=== PATIENT | male | born 1935 | race Caucasian/White ===

== ENCOUNTER 2020-07-10 13:55 | Emergency (ER) | payer MEDICARE, SELFPAY ==
[2020-07-10 14:01] VITALS: BP 164/90; PULSE 66; RESP 18; TEMP 36.8; O2SAT 96; BMI 26.2
--- NOTE | 2020-07-10 14:11 | DI.RAD.S_ITS ---
PROCEDURE: XR RIBS LT MIN 3V W CXR1V INDICATIONS: fall down stair,left rib pain TECHNIQUE: To views of the left ribs were acquired, along with a single view chest. COMPARISON: None. FINDINGS: Surgical changes and devices: None. Bones and chest wall: Bilateral shoulder arthroplasties. No fractures or dislocations. No suspicious bony lesions. Overlying soft tissues appear unremarkable. Lungs and pleura: No pleural effusions or pneumothorax. Lungs appear clear. Atelectasis versus parenchymal scarring noted in the left lung base. Mediastinum: Mediastinal contours appear normal. Heart size is normal. IMPRESSION: No displaced rib fracture. Dictated by: Albertina De Jesus MD, PhD on 07/10/2020 at 15:01 Approved by: Albertina De Jesus MD, PhD on 07/10/2020 at 15:03
--- NOTE | 2020-07-10 14:12 | DI.RAD.S_ITS ---
PROCEDURE: XR KNEE LT 3V INDICATIONS: Fall down stairs TECHNIQUE: 3 views of the knee were acquired. COMPARISON: None. FINDINGS: Bones: No fractures or dislocations. No suspicious bony lesions. Tricompartmental osteoarthritis. Soft tissues: No joint effusion. No suspicious soft tissue calcifications. IMPRESSION: No fracture. No acute osseous lesion. If symptoms and/or clinical suspicion for pathology persists, further assessment with repeat radiographs (7-10 days) or advanced imaging (e.g. CT, MRI or bone scan) should be considered. Dictated by: Albertina De Jesus MD, PhD on 07/10/2020 at 15:01 Approved by: Albertina De Jesus MD, PhD on 07/10/2020 at 15:01
--- NOTE | 2020-07-10 16:19 | ED_ITS ---
HPI - Fall General Chief Complaint: Trauma Stated Complaint: fell down stairs last night and lower back pain Time Seen by Provider: 07/10/20 14:24 Source: patient Mode of arrival: Ambulatory Limitations: no limitations History of Present Illness HPI Narrative: 84-year-old male nonsmoker without significant medical history presents with his in the chief complaint of a fall yesterday. He had been in his normal state of health and was attempting to go down some stairs when his left knee gave out causing him to tumble head over heels down 10 stairs. He denies any head injury or loss of consciousness. He has full recall of the event. He denies any blurred vision, trouble speech or vomiting. He denies any numbness, tingling or weakness. He has no chest pain or shortness of breath. He denies any difficulty breathing. He has had no abdominal pain. He went about his day, had decent night's sleep and decided to come CS today when he coughed briefly which resulted in a severe left lower rib pain. He was activated as a modified trauma given his age and fall down stairs. MD complaint: fall Onset (ago): hour(s) Fall from: down stairs (#) Fall witnessed: no Place fall occurred: home Loss of consciousness: none Symptoms prior to fall: none Context: tripped/slipped Location of injury: chest Severity: mild Quality: sharp Associated symptoms (after fall): denies Related Data Allergies Allergy/AdvReac Type Severity Reaction Status Date / Time codeine AdvReac Verified 07/10/20 14:07 hydrocodone AdvReac Verified 07/10/20 14:07 Review of Systems Constitutional Constitutional: Denies chills, Denies fatigue, Denies fever(s), Denies frequent falls, Denies lethargy and Denies weakness Eyes Eyes: Denies change in vision, Denies eye discharge, Denies irritation and Denies loss of vision ENT Ears, Nose, Mouth, and Throat: Denies change in voice, Denies dizziness, Denies neck pain, Denies sore throat and Denies throat swelling Cardiovascular Cardiovascular: Reports chest pain, Denies irregular heart rhythm, Denies lightheadedness, Denies palpitations, Denies dyspnea, Denies dyspnea on exertion and Denies orthopnea Respiratory Respiratory: Denies cough, Denies dyspnea, Denies dyspnea on exertion and Denies wheezing Gastrointestinal Gastrointestinal: Denies abdominal pain, Denies change in bowel habits, Denies diarrhea, Denies nausea and Denies vomiting Musculoskeletal Musculoskeletal: Denies neck pain and Denies numbness Integumentary/Breasts Skin/Breast: Denies pruritus, Denies erythema, Denies rash and Denies wounds Neurologic Neurologic: Denies behavioral changes, Denies confusion, Denies dizziness, Denies frequent falls, Denies loss of vision, Denies numbness and Denies weakness Psychiatric Psychiatric: Denies anxiety, Denies behavioral changes, Denies confusion, Denies depression, Denies homicidal ideation and Denies suicidal ideation Endocrine Endocrine: Denies fatigue, Denies flushing and Denies palpitations Hematologic/Lymphatic Hematologic/Lymphatic: Denies easy bruising Allergic/Immunologic Allergic/Immunologic: Denies urticaria, Denies throat swelling and Denies wheezing Patient History Social History Smoking Status: Never smoker Smoking Status: Never smoker alcohol intake frequency: a few times a month Substance Use Type: does not use Exam Narrative Exam Narrative: GENERAL: [84] year old patient appears stated age. Well- nourished, well-developed patient, in mild distress. GCS 15 HEAD: Atraumatic. Normocephalic. EYES: Pupils equal round and reactive. Extraocular motions intact. No scleral icterus. No injection or drainage. ENT: Nose without bleeding, purulent drainage. Throat without erythema, tonsillar hypertrophy or exudate. Airway patent. NECK: Trachea midline. Non tender CARDIOVASCULAR: Regular rate and rhythm without murmurs, gallops, or rubs. Tender to palpate on left posterior lower ribs, no crepitance, subcu emphysema. RESPIRATORY: Clear to auscultation. Breath sounds equal bilaterally. No wheezes, rales, or rhonchi. GASTROINTESTINAL: Abdomen soft, non-tender, nondistended. EXTREMITIES: No edema or joint tenderness. BACK: Nontender without deformity or crepitance. No flank tenderness. NEURO: AOx3. SKIN: No rash or erythema of visible areas Initial Vital Signs Initial Vital Signs: Vital Signs Temperature 98.2 F 07/10/20 14:01 Pulse Rate 66 07/10/20 14:01 Respiratory Rate 18 07/10/20 14:01 Blood Pressure 164/90 H 07/10/20 14:01 Pulse Oximetry 96 07/10/20 14:01 Scores GCS [place] coma scale eye opening: Spontaneous [place] coma scale verbal response: Orientated [place] coma scale motor response: Obey commands Amanda coma scale total score: 15 Course Orders Ordered: ED Orders 07/10/20 14:11 XR ribs LT min 3V w CXR1V Stat 07/10/20 14:12 XR knee LT 3V Stat 07/10/20 16:40 CT head/brain wo con Stat Vital Signs Vital signs: Vital Signs - 8 hr 07/10/20 14:01 07/10/20 17:54 Temperature 98.2 F Pulse Rate 66 59 L Respiratory Rate 18 18 Blood Pressure 164/90 H 167/85 H Pulse Oximetry 96 95 MDM - Fall Imaging Data CT scan - head: Radiologist's Impression: [address] [id number] Scan ReportSigned Patient: Pelon Rivera eMR#: [id number]: [id number]:[id number]/Sex: 84 / MDate of Service: 07/10/20Loc: EDAccession Number: [id number] Procedure: CT head/brain wo con Ordering Provider: Jeronimo Hernandez D.O. PROCEDURE: CT HEAD/BRAIN WO CON INDICATIONS: fall with head injury TECHNIQUE: Noncontrast 4.5 mm thick angled axial sections acquired from the foramen magnum to the vertex, with coronal and sagittal reformats. For radiation dose reduction, the following was used: automated exposure control, adjustment of mA and/or kV according to patient size. COMPARISON: [facility], CR, XR RIBS LT MIN 3V W CXR1V, 07/10/2020, 14:22. [facility], CR, XR KNEE LT 3V, 07/10/2020, 14:22. FINDINGS: Image quality: Excellent. CSF spaces: Basal cisterns are patent. No extra-axial fluid collections. The ventricles are symmetric in size and shape. Brain: No intracranial bleeds or masses. There is cerebral volume loss for age, with resultant ventricular and sulcal prominence. There are periventricular and deep white matter chronic small vessel ischemic changes. There is intracranial internal carotid artery atherosclerosis. Skull and face: Calvarium and visualized facial bones appear intact, without suspicious lesions. Sinuses: Visualized sinuses and mastoids are clear. IMPRESSION: No acute intracranial hemorrhage is seen. No acute intracranial process is seen. Dictated by: Marciano Davalos M.D. on 07/10/2020 at 16:06 Approved by: Marciano Davalos M.D. on 07/10/2020 at 16:07 Extremity x-ray #1: Radiologist's Impression: Pelon Rivera e 84 M [address] [id number] ReportSigned Patient: Pelon Rivera eMR#: [id number]: [id number]:[id number]/Sex: 84 / MDate of Service: 07/10/20Loc: EDAccession Number: [id number] Procedure: XR knee LT 3V Ordering Provider: Cristopher Francis MD PROCEDURE: XR KNEE LT 3V INDICATIONS: Fall down stairs TECHNIQUE: 3 views of the knee were acquired. COMPARISON: None. FINDINGS: Bones: No fractures or dislocations. No suspicious bony lesions. Tricompartmental osteoarthritis. Soft tissues: No joint effusion. No suspicious soft tissue calcifications. IMPRESSION: No fracture. No acute osseous lesion. If symptoms and/or clinical suspicion for pathology persists, further assessment with repeat radiographs (7-10 days) or advanced imaging (e.g. CT, MRI or bone scan) should be considered. Dictated by: Albertina De Jesus MD, PhD on 07/10/2020 at 15:01 Approved by: Albertina De Jesus MD, PhD on 07/10/2020 at 15:01 Chest x-ray: Radiologist's Impression: [address] [id number] ReportSigned Patient: Pelon Rivera eMR#: [id number]: [id number]/Sex: 84 / MDate of Service: 07/10/20Loc: EDAccession Number: [id number] Procedure: XR ribs LT min 3V w CXR1V Ordering Provider: Cristopher Francis MD PROCEDURE: XR RIBS LT MIN 3V W CXR1V INDICATIONS: fall down stair,left rib pain TECHNIQUE: To views of the left ribs were acquired, along with a single view chest. COMPARISON: None. FINDINGS: Surgical changes and devices: None. Bones and chest wall: Bilateral shoulder arthroplasties. No fractures or dislocations. No suspicious bony lesions. Overlying soft tissues appear unremarkable. Lungs and pleura: No pleural effusions or pneumothorax. Lungs appear clear. Atelectasis versus parenchymal scarring noted in the left lung base. Mediastinum: Mediastinal contours appear normal. Heart size is normal. IMPRESSION: No displaced rib fracture. Dictated by: Albertina De Jesus MD, PhD on 07/10/2020 at 15:01 Approved by: Albertina De Jesus MD, PhD on 07/10/2020 at 15:03 [facility] Narrative Medical decision making narrative: 84M rolled down flight of 10 stairs and suffered little injury but left lateral rib pain. He had full recall and denies any loss of consciousness, blurred vision, vomiting. He denies any extremity issue other than his knee giving out briefly which caused the fall. He has no ongoing pain, numbness, tingling or weakness. Stroke considered but thought unlikely given the lack of other neurologic symptoms, and a normal head CT at this point time. I did give him extensive return precautions and which he understood as evidenced by his ability to recite them back. Questions answered to his apparent satisfaction. Discharge Plan Departure Patient Disposition: Home Clinical Impression: Pain in rib Fall Qualifiers: Encounter type: initial encounter Qualified Code(s): W19.XXXA - Unspecified fall, initial encounter Instructions: DI for Trauma Activity Restrictions/Additional Instructions: *You have been diagnosed with [fall with left-sided rib pain. X-rays would suggest no fracture. Your head CT was unremarkable and there is no evidence of bleeding or stroke. Additionally, the x-ray of your knees unremarkable] *What to do: *Please continue to take your regular medications as directed. [ ] New medication prescriptions sent to your pharmacy: [ ] [ ] New medication written as a paper prescription [ x] No new medications given *Please follow up with your primary care provider in 2-3 days, call for an appointment. Let them know you were seen in the Emergency Department and that we ask that you be seen in follow up. We will electronically transmit a record of today's note if your PCP is in our system *If you do not have a primary care provider please contact the [facility] Resource line at [phone]. They will ask some questions about your medical history and help get you set up with a doctor in the community. *Return to Emergency Department if you should have any new, worsening or concerning symptoms, such as [fever greater than 101 F, shaking chills, worsening pain, persistent vomiting or other bothersome symptoms]
--- NOTE | 2020-07-10 16:40 | DI.CT.S_ITS ---
PROCEDURE: CT HEAD/BRAIN WO CON INDICATIONS: fall with head injury TECHNIQUE: Noncontrast 4.5 mm thick angled axial sections acquired from the foramen magnum to the vertex, with coronal and sagittal reformats. For radiation dose reduction, the following was used: automated exposure control, adjustment of mA and/or kV according to patient size. COMPARISON: [facility], CR, XR RIBS LT MIN 3V W CXR1V, 07/10/2020, 14:22. [facility], CR, XR KNEE LT 3V, 07/10/2020, 14:22. FINDINGS: Image quality: Excellent. CSF spaces: Basal cisterns are patent. No extra-axial fluid collections. The ventricles are symmetric in size and shape. Brain: No intracranial bleeds or masses. There is cerebral volume loss for age, with resultant ventricular and sulcal prominence. There are periventricular and deep white matter chronic small vessel ischemic changes. There is intracranial internal carotid artery atherosclerosis. Skull and face: Calvarium and visualized facial bones appear intact, without suspicious lesions. Sinuses: Visualized sinuses and mastoids are clear. IMPRESSION: No acute intracranial hemorrhage is seen. No acute intracranial process is seen. Dictated by: Marciano Davalos M.D. on 07/10/2020 at 16:06 Approved by: Marciano Davalos M.D. on 07/10/2020 at 16:07
[2020-07-10 17:54] VITALS: BP 167/85; PULSE 59; RESP 18; O2SAT 95
== END 2020-07-10 17:56 | disposition home or self-care (01) ==
PROVIDERS: Emergency Provider Emergency Medicine
DX: S09.90XA Unspecified injury of head, initial encounter (principal); R07.9 Chest pain, unspecified; R07.81 Pleurodynia; M25.562 Pain in left knee; W19.XXXA Unspecified fall, initial encounter
CPT/HCPCS: 70450; 71101; 73562; 99281; 99284

== ENCOUNTER → 2021-09-28 09:53 | Outpatient (CLI) | payer MEDICARE, SELFPAY ==
[2021-09-28 13:07] LABS: COVID19 -Nasal RAPID Negative (Negative)
== END ==
PROVIDERS: PCP Internal Medicine; Visit Provider Surgery
DX: Z20.822 Contact with and (suspected) exposure to COVID-19 (principal); Z01.812 Encounter for preprocedural laboratory examination
CPT/HCPCS: 87635; C9803

== ENCOUNTER 2021-09-29 11:21 | Day surgery (SDC) | payer MEDICARE, SELFPAY ==
--- NOTE | 2021-09-29 | PATH_ITS ---
[facility] Accession Number: [id number] . 01 Material submitted: . PART A: colon - ASCENDING COLON POLYP X3 PART B: sigmoid colon - SIGMOID COLON POLYP . 01 Diagnosis: A. Ascending Colon Polyps, Biopsies: Tubular adenoma x3. . B. Sigmoid Colon Polyp, Biopsy: Tubular adenoma. MRV 10/03/2021 1139 Local . 01 Electronically signed: . Joe Napier MD, PhD, Pathologist NPI- [id number] . 01 Gross description: . Part A: ASCENDING COLON POLYP X3: Received in formalin are 3 fragment(s) of reed, soft tissue measuring 0.5 x 0.3 x 0.2 cm to 0.2 x 0.1 x 0.1 cm submitted entirely in 1 cassette(s) Part B: SIGMOID COLON POLYP: Received in formalin are 2 fragment(s) of reed, soft tissue measuring 0.5 x 0.3 x 0.3 cm to 0.4 x 0.2 x 0.2 cm submitted entirely in 1 cassette(s) /CPE 09/30/2021 0809 Local . 01 Pathologist provided ICD-10: D12.2, D12.5 . 01 CPT . 749239, 678181 Specimen Comment: A courtesy copy of this report has been sent to [phone] Performed at: 01 [facility] [address] [place] [id number] MD Ottoniel Camargo MD Phone: [phone]
[2021-09-29 11:31] VITALS: BP 149/86; PULSE 97; RESP 16; TEMP 36.4; O2SAT 98; BMI 25.8
[2021-09-29] MEDS: LACTATED RINGERS 1,000 ML 150 ML IV (11:43)
--- NOTE | 2021-09-29 12:27 | PM.HP.1 ---
History of Present Illness History of Present Illness Date Patient Seen: 09/29/21 Time Patient Seen: 12:27 Chief complaint: Colonoscopy Narrative: Pelon is an 85-year-old man who believes he had a colonoscopy about 9 years ago with multiple polyps removed. 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 Patient History Medical History Fractures (~1952) GERD without esophagitis History of adenomatous polyp of colon Mixed hyperlipidemia Neuroendocrine cancer (~2018) Skin cancer (~1954) Surgical History (Updated 08/15/21 @ 22:07 by Anuja Valera) Anesthesia History of intestinal surgery (~07/07/18) S/P cholecystectomy (~06/2017) S/P shoulder replacement Family & Social History Family History (Updated 08/15/21 @ 22:08 by Anuja Valera) Father Cancer Sister Thyroid cancer Social History: household members spouse Tobacco & Substance use: Smoking Status Never smoker alcohol intake current alcohol intake frequency a few times a month Substance Use Type does not use Meds Home Medications and Allergies Home Medications Medication Instructions Recorded Confirmed Type omeprazole 20 mg capsule,delayed 20 mg PO DAILY #90 caps 06/28/21 09/29/21 Rx release simvastatin 40 mg tablet 40 mg PO DAILY #90 tabs 06/28/21 08/16/21 Rx sodium sul 1.479 gram-potas ch See Rx Instructions PO PER PKG DIR 09/15/21 Rx 0.188 gram-magnes sul 0.225 gram #24 tabs tablet (Sutab) Allergies Allergy/AdvReac Type Severity Reaction Status Date / Time codeine AdvReac Verified 09/29/21 11:39 hydrocodone AdvReac Verified 09/29/21 11:39 Exam Vital Signs (past 8 hours): - 09/29/21 11:31 Temperature 97.6 F Pulse Rate 97 H Respiratory Rate 16 Blood Pressure 149/86 H Pulse Oximetry 98 Oxygen Delivery Method Room Air Oxygen Delivery Method Room Air Const General: healthy appearing Assessment & Plan Assessment and plan (1) History of adenomatous polyp of colon: Status: Inactive Plan We reviewed the risks and benefits of colonoscopy and he would like to proceed. Time Spent With Patient Critical Care time: I spent a total of [] minutes of critical care time on this patient's care today; this time is exclusive of procedural time.
[2021-09-29] MEDS: fentaNYL 100 MCG/2 ML INJ IV (12:52)
[2021-09-29] MEDS: MIDAZOLAM 5 MG/5 ML VIAL 6 MG IV (12:52)
--- NOTE | 2021-09-29 13:01 | P.OP.COLON_ITS ---
Operative Date/Time/Diagnoses Date of procedure: 09/29/21 Time of procedure: 13:01 Pre-op diagnosis: History of colon polyps Post-op diagnosis: same Procedure & Clinicians Study performed: Colonoscopy Same procedure as scheduled: Yes Surgeon: Nabil Daniels Procedure Notes Procedure in detail: Surgeon: Nabil Daniels MD Procedure: The patient was brought to the endoscopy suite, placed in left lateral decubitus position. The patient was connected to monitoring devices. A time-out was performed. Sedation was administered. Once the patient was adequately sedated, a digital rectal exam was performed and was normal. The scope was then inserted and advanced to the cecum where the appendiceal orifice was identified and photographed. The scope was then slowly withdrawn over greater than 6 minutes. The mucosa was thoroughly inspected. There were 3 polyps in the ascending colon each about 5 mm and each removed with cold snare. They were all sent together labeled ?ascending polyps?. There was a 8 mm polyp in the distal sigmoid colon removed with a hot snare. There were a few sc attered diverticula in the sigmoid colon. The scope was retroflexed in the rectum. No abnormality was noted in the rectum. The scope was straightened and removed. The patient was awakened and brought to recovery. Versed: 6 mg Fentanyl: 100 mcg EBL: 5 mL Findings: Small polyps in the ascending colon, sigmoid colon and a few scattered diverticula Scope withdrawal time: 14 Sedation minutes: 23 Post-procedure Recommendations: Will call with biopsy results Disposition: PACU
[2021-09-29 13:05] VITALS: BP 116/70; PULSE 76; RESP 18; TEMP 36.7; O2SAT 95
[2021-09-29 13:09] VITALS: BP 104/70; PULSE 73; RESP 18; O2SAT 94
[2021-09-29 13:14] VITALS: BP 100/63; PULSE 69; RESP 12; RESP 18; O2SAT 93; O2SAT 95
[2021-09-29 13:29] VITALS: BP 132/84; PULSE 79; RESP 14; TEMP 36.4; O2SAT 96
== END 2021-09-29 13:45 | disposition home or self-care (01) ==
PROVIDERS: PCP Internal Medicine; Referring Provider Surgery; Visit Provider Surgery
PROC: 0DJD8ZZ Inspection of Lower Intestinal Tract, Via Natural or Artificial Opening Endoscopic (ICD-10-PCS; CPT 45378; principal; 2021-09-29 13:00)
DX: Z12.11 Encounter for screening for malignant neoplasm of colon (principal); Z86.010 Personal history of colon polyps; K57.30 Diverticulosis of large intestine without perforation or abscess without bleeding; D12.2 Benign neoplasm of ascending colon; D12.5 Benign neoplasm of sigmoid colon
CPT/HCPCS: 45385; 99152; 99153; J2250; J3010

== ENCOUNTER → 2022-01-17 09:21 | Outpatient (CLI) | payer MEDICARE, SELFPAY ==
[2022-01-17 11:36] LABS: Alanine Aminotransferase 29 IU/L (<50); Albumin 4.2 g/dL (3.5-5.0); Albumin Globulin Ratio 1.9 (1.0-2.8); Alkaline Phosphatase 72 U/L (38-126); Aspartate Aminotransferase 28 IU/L (17-59); BUN Creatinine Ratio 16.5 (6-22); Bilirubin Total 0.6 mg/dL (0.2-1.3); Blood Urea Nitrogen 20 mg/dL (9-20); Calcium 8.8 mg/dL (8.4-10.2); Carbon Dioxide 28 mmol/L (22-32); Chloride 101 mmol/L (98-107); Cholesterol 125 mg/dL (140-199); Estimated Glomerular Filt Rate 59 mL/min (>60); Globulin 2.2 g/dL (1.7-4.1); Glucose 92 mg/dL (80-110); HDL Cholesterol 35 mg/dL (40-60); HEMOLYSIS < 15 (0-50); LDL Cholesterol Calculated 72 mg/dL (<100); Potassium 4.6 mmol/L (3.4-5.1); Sodium 138 mmol/L (137-145); Total Protein 6.4 g/dL (6.3-8.2); Triglycerides 89 mg/dL (35-150)
== END ==
PROVIDERS: PCP Internal Medicine; Referring Provider Internal Medicine; Visit Provider Internal Medicine
DX: E78.2 Mixed hyperlipidemia (principal)
CPT/HCPCS: 36415; 80053; 80061

== ENCOUNTER 2023-01-12 20:02 | Emergency (ER) | payer MEDICARE, SELFPAY ==
[2023-01-12 20:17] VITALS: BP 159/84; PULSE 75; RESP 16; TEMP 36.6; O2SAT 98; BMI 26.6
[2023-01-12 20:35] LABS: Add Manual Diff / Slide Review NO; Basophils Absolute Auto 0 /uL (0-100); Basophils Percent Auto 0.3 % (0-2); Eosinophils Absolute Auto 400 /uL (0-450); Eosinophils Percent Auto 4.4 % (2-4); Hematocrit 40.9 % (41-53); Lymphocytes Absolute Auto 1400 /uL (1100-4500); Mean Corpuscular HGB Conc 34.1 % (30-36); Mean Corpuscular Hemoglobin 31.2 PG (26-34); Mean Corpuscular Volume 91.6 fL (80-100); Monocytes Absolute Auto 800 /uL (0-900); Neutrophils Absolute Auto 6100 /uL (1500-7000); Neutrophils Percent Auto 70.3 % (50-75); Platelet Count 214 X10^3/uL (150-400); Red Blood Cell Count 4.47 X10^6/uL (4.5-5.9); Red Cell Distribution Width 12.9 % (11.6-14.8); White Blood Cell Count 8.7 X10^3/uL (4.5-11.0)
[2023-01-12 20:41] LABS: Alanine Aminotransferase 30 IU/L (<50); Albumin 3.8 g/dL (3.5-5.0); Albumin Globulin Ratio 1.4 (1.0-2.8); Alkaline Phosphatase 63 U/L (38-126); Aspartate Aminotransferase 35 IU/L (17-59); Bilirubin Total 0.7 mg/dL (0.2-1.3); Blood Urea Nitrogen 27 mg/dL (9-20); Carbon Dioxide 25 mmol/L (22-32); Chloride 107 mmol/L (98-107); Estimated Glomerular Filt Rate 57 mL/min (>60); Globulin 2.7 g/dL (1.7-4.1); Glucose 105 mg/dL (80-110); HEMOLYSIS < 15 (0-50); Lipase 43 U/L (23-300); Potassium 4.5 mmol/L (3.4-5.1); Sodium 138 mmol/L (137-145); Total Protein 6.5 g/dL (6.3-8.2)
--- NOTE | 2023-01-12 21:23 | ED.NAVMDI ---
HPI - Nausea/Vomiting/Diarrhea General Chief complaint: Nausea/Vomiting/Diarrhea Stated complaint: Diarrhea 24hrs Time Seen by Provider: 01/12/23 21:22 Source: patient Mode of arrival: Ambulatory Limitations: no limitations History of Present Illness HPI Narrative: 87-year-old male with history of dyslipidemia, GERD, neuroendocrine cancer who presents with complaint of diarrhea for the past 24 hours. Patient had dental surgery on Sunday, 5 days ago. Was started on amoxicillin had 500 mg, 3 times daily. Patient states he started having watery diarrhea yesterday with increasing frequency in large amounts. No fevers, no chills, no chest pain or shortness of breath. He felt very mildly dizzy today. He denies any abdominal back or flank pain. He denies any dysuria, urgency or frequency. He states no black or bloody stools. He states it has been very watery. Patient states he is had a similar antibiotic in the past but only 1 or 2 doses for dental cleanings. Patient states he does not have a prior history of C diff. he has not had issues with chronic diarrhea in the past. States has not allergy to codeine but did have some this week which he tolerated without issue and stopped on Sunday. No tobacco, occasional alcohol, no recreational drugs. He is accompanied by his . Dr. De Los Santos is his primary care. Patient is unsure how long his antibiotic course is supposed to be he does not have the bottle with him. Related Data Previous Rx's Medication Instructions Recorded omeprazole 20 mg capsule,delayed 20 mg PO DAILY #90 caps 01/16/22 release simvastatin 40 mg tablet 40 mg PO DAILY #90 tabs 01/16/22 Allergies Allergy/AdvReac Type Severity Reaction Status Date / Time codeine AdvReac Verified 01/12/23 20:19 hydrocodone AdvReac Verified 01/12/23 20:19 Review of Systems Review of Systems ROS Unobtainable: All systems reviewed & are unremarkable except as noted in HPI and below Patient History Medical History History of adenomatous polyp of colon Fractures (~1952) Skin cancer (~1954) GERD without esophagitis Mixed hyperlipidemia Neuroendocrine cancer (~2018) Surgical History Anesthesia History of intestinal surgery (~07/07/18) S/P shoulder replacement S/P cholecystectomy (~06/2017) Family History Father Cancer Sister Thyroid cancer Social History household members: spouse Smoking Status: Never smoker alcohol intake: current Smoking Status: Never smoker alcohol intake frequency: a few times a month Substance Use Type: does not use Exam Narrative Exam Narrative: GENERAL: Alert and oriented x three, well-appearing elderly male in mild distress. HEENT: Head normocephalic, atraumatic, EOMI, pupils reactive, face symmetric, moist mucous membranes NECK: Supple, full range of motion CARDIOVASCULAR: Regular rate and rhythm without murmurs, rubs or gallops. RESPIRATORY: Breath sounds equal bilaterally, no wheezes rales or rhonchi. ABDOMEN: Soft, nontender. Nondistended. Normoactive bowel sounds all 4 quadrants. No guarding or rebound, rigidity, no mass : No CVA tenderness EXTREMITIES: Normal range of motion, no clubbing or edema. Neurovascularly intact NEUROLOGICAL: Cranial nerves II through XII grossly intact. Moving all extremities SKIN: Warm, dry, no petechiae, no rashes or lesions. Initial Vital Signs Initial Vital Signs: Vital Signs Temperature 97.8 F 01/12/23 20:17 Pulse Rate 75 01/12/23 20:17 Respiratory Rate 16 01/12/23 20:17 Blood Pressure 159/84 H 01/12/23 20:17 Pulse Oximetry 98 01/12/23 20:17 Oxygen Delivery Method Room Air 01/12/23 20:17 Course Orders Ordered: ED Orders 01/12/23 20:16 Complete Blood Count AUTO DIFF Stat Comprehensive Metabolic Panel Stat Lipase Stat 01/12/23 20:19 EKG-12 Lead Stat 01/12/23 21:18 GI Panel (Film Array) Stat Discontinued Medications Sodium Chloride (Normal Saline 0.9%) 1,000 mls @ 1,000 mls/hr IV BOLUS ONE Stop: 01/12/23 22:32 Last Infusion: 01/12/23 22:54 Dose: Infused Documented By: Admin: 01/12/23 21:46 Dose: 1,000 mls/hr Documented By: FAMILIA Loperamide HCl (Loperamide 2 Mg Capsule) 2 mg PO NOW ONE Stop: 01/12/23 21:35 Last Admin: 01/12/23 21:47 Dose: 2 mg Documented By: FAMILIA Ondansetron HCl (Ondansetron 4 Mg/2 Ml Inj) 4 mg IV NOW PRN PRN Reason: Nausea And Vomiting Ondansetron HCl (Ondansetron 4 Mg Odt) 4 mg PO NOW PRN PRN Reason: Nausea And Vomiting Vital Signs Vital signs: Vital Signs - 8 hr 01/12/23 20:17 01/12/23 23:05 Temperature 97.8 F Pulse Rate 75 62 Respiratory Rate 16 12 Blood Pressure 159/84 H 135/75 Pulse Oximetry 98 96 Oxygen Delivery Method Room Air MDM - Nausea/Vomiting/Diarrhea Lab Data 01/12/23 20:16 01/12/23 20:16 Labs: Lab Results 01/12/23 01/12/23 Range/Units 20:16 21:18 WBC 8.7 (4.5-11.0) X10^3/uL RBC 4.47 L (4.5-5.9) X10^6/uL Hgb 14.0 (13.5-17.5) g/dL Hct 40.9 L (41-53) % MCV 91.6 (80-100) fL MCH 31.2 (26-34) PG MCHC 34.1 (30-36) % RDW 12.9 (11.6-14.8) % Plt Count 214 (150-400) X10^3/uL Neut % (Auto) 70.3 (50-75) % Lymph % (Auto) 16.0 L (25-40) % [place] % (Auto) 9.0 (3-14) % Eos % (Auto) 4.4 H (2-4) % Baso % (Auto) 0.3 (0-2) % Neut # (Auto) 6100 (2568-1588) /uL Lymph # (Auto) 1400 (7699-2957) /uL [place] # (Auto) 800 (0-900) /uL Eos # (Auto) 400 (0-450) /uL Baso # (Auto) 0 (0-100) /uL Sodium 138 (137-145) mmol/L Potassium 4.5 (3.4-5.1) mmol/L Chloride 107 (98-107) mmol/L Carbon Dioxide 25 (22-32) mmol/L BUN 27 H (9-20) mg/dL Creatinine 1.23 (0.66-1.25) mg/dL Estimated GFR 57 L (>60) mL/min BUN/Creatinine Ratio 22.0 (6-22) Glucose 105 (80-110) mg/dL Calcium 9.0 (8.4-10.2) mg/dL Total Bilirubin 0.7 (0.2-1.3) mg/dL AST 35 (17-59) IU/L ALT 30 (<50) IU/L Alkaline Phosphatase 63 (38-126) U/L Total Protein 6.5 (6.3-8.2) g/dL Albumin 3.8 (3.5-5.0) g/dL Globulin 2.7 (1.7-4.1) g/dL Albumin/Globulin Ratio 1.4 (1.0-2.8) Lipase 43 (23-300) U/L Stl C. cayetanensis PCR Not detected (Not Detect) Stool Rotavirus (PCR) Not detected (Not Detect) Stool Adenovirus (PCR) Not detected (Not Detect) Stool Astrovirus (PCR) Not detected (Not Detect) Stool Cryptosporidium PCR Not detected (Not Detect) Stl E.coli Shiga Tox PCR Not detected (Not Detect) St Sh/Enteroin Ecoli PCR Not detected (Not Detect) Stl Enterotoxigenic E PCR Detected (Not Detect) Stool EPEC (PCR) Not detected (Not Detect) Stl E. histolytica PCR Not detected (Not Detect) Stool Giardia Lamblia PCR Not detected (Not Detect) Stool Sapovirus (PCR) Not detected (Not Detect) Stl P. shigelloides PCR Not detected (Not Detect) St Y.enterocolitica PCR Not detected (Not Detect) Stool Vibrio (PCR) Not detected (Not Detect) Stl Vibrio cholerae PCR Not detected (Not Detect) Stl Enteroaggr Ecoli PCR Not detected (Not Detect) Stl Norovirus GI/GII PCR Not detected (Not Detect) Campylobacter (PCR) Not detected (Not Detect) C. difficile Tox (PCR) Not detected (Not Detect) Salmonella (PCR) Not detected (Not Detect) MDM Narrative Medical decision making narrative: 87-year-old male with complaint of diarrhea for the past 24 hours he has been on amoxicillin 500 mg t.i.d. for the past 5 days. Suspect antibiotic induced diarrhea. Labs overall are reassuring white count 8.7 hemoglobin is 14 with a crit of 40 and normal platelets at 214. Chemistry shows normal electrolytes BUN 27 creatinine 1.23 was 1.21 in January of 2022 a year ago, normal LFTs. Discussed with patient based on age and diarrhea CT imaging but patient felt not to require patient agreeable to hold off on imaging unless he develops pain. Patient was able to give sample of GI panel here in the department. Patient tested positive for entero toxigenic E coli. Per CDC typically symptomatic treatment. Patient does not appear of overwhelming infection and has been on an antibiotic so we will hold his amoxicillin and happy. Follow-up for recheck as needed 1L of fluids and a dose of loperamide here with plan for Imodium and Pepto-Bismol. Reviewed patient's findings with his GI panel. He is agreeable to hold off on any additional antibiotics will hold amoxicillin at this time discussed return precautions. Patient feels comfortable with this plan. Discharge Plan Departure Patient Disposition: Home Clinical Impression: Diarrhea, Enteritis, enterotoxigenic E. coli Instructions: Diarrhea Activity Restrictions/Additional Instructions: Please stop your oral antibiotic. You have completed 5 days total so you do have some coverage from what you have taken so far. You may take Imodium [id number] as well as Pepto-Bismol. You were GI panel is positive for Enterotoxigenic E. Coli Most individuals recover without any additional treatment. If you are diarrhea continues to persist after the next 2-3 days please follow-up. Please return for fevers, increasing lightheadedness or passing out, new abdominal pain, back or flank pain, black or bloody stools or other new or concerning changes. Prescriptions: No Action omeprazole 20 mg capsule,delayed release(DR/EC) 20 mg PO DAILY Qty: 90 3RF simvastatin 40 mg tablet 40 mg PO DAILY Qty: 90 3RF Referrals: Elan De Los Santos MD [Primary Care Provider] - Stand Alone Forms: Patient Portal/API
[2023-01-12] MEDS: SODIUM CHLORIDE 0.9% 1,000 ML 1000 ML IV (21:46)
[2023-01-12] MEDS: LOPERAMIDE 2 MG CAPSULE PO (21:47)
[2023-01-12 22:42] LABS: Adenovirus F 40/41 Not Detected (Not Detect); Astrovirus Not Detected (Not Detect); Campylobacter Not Detected (Not Detect); Clostridium difficile toxin AB Not Detected (Not Detect); Cryptosporidium Not Detected (Not Detect); Cyclospora cayetanensis Not Detected (Not Detect); Entamoeba histolytica Not Detected (Not Detect); Enteroaggregative E.coli Not Detected (Not Detect); Enteropathogenic E.coli Not Detected (Not Detect); Enterotoxigenic E.coli It/st Detected (Not Detect); Giardia lamblia Not Detected (Not Detect); Norovirus GI/GII Not Detected (Not Detect); Plesiomonsa shigelloides Not Detected (Not Detect); Rotavirus A Not Detected (Not Detect); Salmonella Not Detected (Not Detect); Sapovirus Not Detected (Not Detect); Shiga-like toxin-prod E.coli Not Detected (Not Detect); Shigella/Enteroinvasive E.coli Not Detected (Not Detect); Vibrio Not Detected (Not Detect); Vibrio cholerae Not Detected (Not Detect); Yersinia enterocolitica Not Detected (Not Detect)
[2023-01-12 23:05] VITALS: BP 135/75; PULSE 62; RESP 12; O2SAT 96
== END 2023-01-12 23:06 | disposition home or self-care (01) ==
PROVIDERS: Emergency Provider Emergency Medicine; PCP Internal Medicine
DX: A04.1 Enterotoxigenic Escherichia coli infection (principal)
CPT/HCPCS: 36415; 80053; 83690; 85025; 87507; 99283; 99284

== ENCOUNTER → 2023-12-31 16:19 | Outpatient (CLI) | payer MEDICARE, SELFPAY ==
[2023-12-31 17:48] LABS: Alanine Aminotransferase 21 IU/L (<50); Albumin 3.8 g/dL (3.5-5.0); Albumin Globulin Ratio 1.7 (1.0-2.8); Alkaline Phosphatase 71 U/L (38-126); Aspartate Aminotransferase 25 IU/L (17-59); BUN Creatinine Ratio 17.3 (6-22); Bilirubin Total 0.6 mg/dL (0.2-1.3); Blood Urea Nitrogen 22 mg/dL (9-20); Carbon Dioxide 29 mmol/L (22-32); Chloride 104 mmol/L (98-107); Cholesterol 108 mg/dL (140-199); Estimated Glomerular Filt Rate 55 mL/min (>60); Globulin 2.3 g/dL (1.7-4.1); Glucose 84 mg/dL (80-110); HDL Cholesterol 33 mg/dL (40-60); HEMOLYSIS < 15 (0-50); LDL Cholesterol Calculated 61 mg/dL (<100); Sodium 138 mmol/L (137-145); Total Protein 6.1 g/dL (6.3-8.2); Triglycerides 72 mg/dL (35-150)
== END ==
PROVIDERS: PCP Internal Medicine; Referring Provider Internal Medicine; Visit Provider Internal Medicine
DX: E78.2 Mixed hyperlipidemia (principal); K21.9 Gastro-esophageal reflux disease without esophagitis
CPT/HCPCS: 36415; 80053; 80061

== ENCOUNTER → 2024-07-10 12:52 | Outpatient (CLI) | payer MEDICARE, SELFPAY ==
--- NOTE | 2024-07-10 12:54 | DI.RAD.S_ITS ---
PROCEDURE: XR KNEE LT 3V INDICATIONS: Left knee strain TECHNIQUE: 3 views of the knee were acquired. COMPARISON: None. FINDINGS: Bones: No fractures or dislocations. No suspicious bony lesions. There is moderately advanced degenerative changes involving the medial compartment. Tricompartmental o osteophytosis is present. Soft tissues: There is a suprapatellar bursa effusion. IMPRESSION: No acute bony abnormality. Osteoarthritis especially involving the medial compartment with moderate suprapatellar bursa effusion. Dictated by: Mark Moura M.D. on 07/10/2024 at 15:29 Approved by: Mark Moura M.D. on 07/10/2024 at 15:31
== END ==
PROVIDERS: PCP Internal Medicine; Referring Provider Internal Medicine; Visit Provider Nurse Practitioner Family
DX: S86.912A Strain of unspecified muscle(s) and tendon(s) at lower leg level, left leg, initial encounter (principal); M17.12 Unilateral primary osteoarthritis, left knee; M25.462 Effusion, left knee; X58.XXXA Exposure to other specified factors, initial encounter
CPT/HCPCS: 73562

== ENCOUNTER → 2024-12-30 15:28 | Outpatient (CLI) | payer MEDICARE, SELFPAY ==
[2024-12-30 16:51] LABS: Alanine Aminotransferase 25 IU/L (<50); Albumin 4.5 g/dL (3.5-5.0); Albumin Globulin Ratio 2.0 (1.0-2.8); Alkaline Phosphatase 83 U/L (38-126); Blood Urea Nitrogen 25 mg/dL (9-20); Calcium 9.6 mg/dL (8.4-10.2); Carbon Dioxide 26 mmol/L (22-32); Chloride 106 mmol/L (98-107); Cholesterol 113 mg/dL (140-199); Estimated Glomerular Filt Rate 59 mL/min (>60); Globulin 2.3 g/dL (1.7-4.1); Glucose 97 mg/dL (70-99); HDL Cholesterol 36 mg/dL (40-60); HEMOLYSIS < 15 (0-50); Potassium 4.1 mmol/L (3.4-5.1); Sodium 142 mmol/L (137-145); Total Protein 6.8 g/dL (6.3-8.2); Triglycerides 157 mg/dL (35-150)
== END ==
PROVIDERS: PCP Internal Medicine; Referring Provider Internal Medicine; Visit Provider Internal Medicine
DX: N18.31 Chronic kidney disease, stage 3a (principal); E78.2 Mixed hyperlipidemia
CPT/HCPCS: 36415; 80053; 80061